=== PATIENT | male | born 1970 | race Caucasian/White ===

== ENCOUNTER 2018-03-14 14:19 | Emergency (ER) | payer OTHER ==
[2018-03-14 14:25] VITALS: BP 144/89
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
[2018-03-14] MEDS ORDERED: OXYCODONE/APAP 5/325 TAB PO ONE (14:48)
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
== END 2018-03-14 15:20 | disposition home or self-care (01) ==
DX: S42.031A Displaced fracture of lateral end of right clavicle, initial encounter for closed fracture (principal); S22.41XA Multiple fractures of ribs, right side, initial encounter for closed fracture; R91.1 Solitary pulmonary nodule; V18.4XXA Pedal cycle driver injured in noncollision transport accident in traffic accident, initial encounter; Y93.55 Activity, bike riding; Y92.9 Unspecified place or not applicable; Y99.9 Unspecified external cause status
CPT/HCPCS: A4565